=== PATIENT | female | born 1960 | race Two or more races ===

== ENCOUNTER → 2017-09-28 | Emergency (ER) | payer OTHER ==
[~2017-09-28] VITALS: Ht 152.4 cm; Wt 87.5 kg
[~2017-09-28] MED LIST: CATAFLAM50 MG PO; COZAAR50 MG; MILK THISTLE175 MG; PROBIOTIC1 EAC3; VENTOLIN HFA18 GM IH; ZITHROMAX200 MG PO
== END | disposition home or self-care (01) ==
LOC: ER 03:21
DX: K29.70 Gastritis, unspecified, without bleeding (principal); R50.9 Fever, unspecified